=== PATIENT | female | born 1965 | race African-American/Black ===

== ENCOUNTER 2018-02-13 15:52 | Emergency (ER) | payer MEDICAID ==
[~2018-02-13] VITALS: Ht 162.6 cm; Wt 59.0 kg
[2018-02-13 17:37] VITALS: BP 143/85
== END 2018-02-13 17:40 | disposition home or self-care (01) ==
LOC: ER 15:52
DX: S80.862A Insect bite (nonvenomous), left lower leg, initial encounter (principal); L08.9 Local infection of the skin and subcutaneous tissue, unspecified; W57.XXXA Bitten or stung by nonvenomous insect and other nonvenomous arthropods, initial encounter; R03.0 Elevated blood-pressure reading, without diagnosis of hypertension; Y93.89 Activity, other specified; Y92.89 Other specified places as the place of occurrence of the external cause
CPT/HCPCS: 99283

== ENCOUNTER 2018-11-05 22:14 | Emergency (ER) | payer MEDICAID ==
[~2018-11-05] VITALS: Ht 162.6 cm; Wt 60.0 kg
[2018-11-05 22:25] VITALS: BP 136/84
== END 2018-11-06 08:53 | disposition left against medical advice (07) ==
LOC: ER 22:14
DX: Z53.21 Procedure and treatment not carried out due to patient leaving prior to being seen by health care provider (principal)

== ENCOUNTER 2021-02-22 17:38 | Emergency (ER) | payer OTHER | END 2021-02-22 18:47 | disposition left against medical advice (07) | LOC: ER 17:38 | DX: Z53.21 Procedure and treatment not carried out due to patient leaving prior to being seen by health care provider (principal) ==

== ENCOUNTER 2021-11-21 10:20 | Emergency (ER) | payer OTHER ==
[~2021-11-21] VITALS: Ht 157.5 cm; Wt 59.0 kg
[2021-11-21] MEDS ORDERED: CEPH500C2 PO (10:35)
[2021-11-21] MEDS ORDERED: SULF1TAB48 PO (10:35)
[2021-11-21] MEDS ORDERED: CEPHALEXIN 250MG CAPSULE PO ONE (10:45)
[2021-11-21] MEDS ORDERED: SULFAMETHOXAZOLE/TRIMETHOPRIM 800/160MG TABLET PO ONE (10:45)
[2021-11-21 10:59] VITALS: BP 138/76
== END 2021-11-21 11:00 | disposition home or self-care (01) ==
LOC: ER 10:22
DX: S80.862A Insect bite (nonvenomous), left lower leg, initial encounter (principal); L03.116 Cellulitis of left lower limb; W57.XXXA Bitten or stung by nonvenomous insect and other nonvenomous arthropods, initial encounter; Y93.89 Activity, other specified; Y92.89 Other specified places as the place of occurrence of the external cause
CPT/HCPCS: 99283

== ENCOUNTER 2024-01-21 00:49 | Emergency (ER) | payer OTHER ==
[~2024-01-21] VITALS: Ht 162.6 cm; Wt 62.0 kg
[~2024-01-21 00:49] MED LIST: CEPH500C2 PO; SULF1TAB48 PO
[2024-01-21 01:00] VITALS: O2SAT 100
[2024-01-21] MEDS: IBUPROFEN 600MG TABLET PO STA (02:00)
[2024-01-21 03:45] VITALS: BP 139/85; PULSE 65; RESP 16; TEMP 36.72516; O2SAT 100
== END 2024-01-21 03:46 | disposition home or self-care (01) ==
LOC: ER 00:49
DX: S00.83XA Contusion of other part of head, initial encounter (principal); I10 Essential (primary) hypertension; F12.10 Cannabis abuse, uncomplicated; W18.39XA Other fall on same level, initial encounter; Y93.89 Activity, other specified; Y92.89 Other specified places as the place of occurrence of the external cause; Y99.8 Other external cause status
CPT/HCPCS: 70486; 99291